=== PATIENT | female | born 1980 | race Caucasian/White ===

== ENCOUNTER 2023-12-10 16:51 | Emergency (ER) | payer MEDICAID ==
[~2023-12-10] VITALS: Ht 177.8 cm; Wt 111.4 kg
[2023-12-10 16:55] VITALS: BP 129/66; PULSE 110; RESP 20; TEMP 98.7; O2SAT 98
== END 2023-12-10 17:10 | disposition home or self-care (01) ==
LOC: ER 16:52
DX: Z04.1 Encounter for examination and observation following transport accident (principal); R45.1 Restlessness and agitation
CPT/HCPCS: 99283